=== PATIENT | male | born 1985 | race Two or more races ===

== ENCOUNTER 2016-09-02 11:42 | Emergency (ER) | payer OTHER ==
[~2016-09-02] VITALS: Ht 182.9 cm; Wt 72.4 kg
[~2016-09-02 11:42] MED LIST: AMOXICILLIN500 M1 PO; AUGMENTIN875 MG PO; LEXAPRO5 MG PO; PEN-VEE K,VEET500 MG PO; PERCOCET 5/31 TABLET PO; TORADOL10 MG PO; ULTRAM50 MG PO; no home med
[2016-09-02] MEDS ORDERED: DEPAKOTE500 MG PO (13:05)
[2016-09-02] MEDS ORDERED: LEXAPRO10 MG PO (13:06)
[2016-09-02 13:12] LABS: MCH 32.9 PG (29.0-34.0); MCHC 35.1 G/DL (30.0-36.0); MCV 93.8 FL (86-99); MEAN PLAT.VOLUME 11.2 uM^3 (9.0-12.4); PLATELET COUNT 184 K/uL (156-360); RBC DIS.WIDTH-CV 12.8 % (11.8-14.6); RBC DIS.WIDTH-SD 42.9 % (39-53); WHITE BLOOD COUNT 8.9 K/uL (4.1-10.2)
[2016-09-02 13:25] LABS: CHLORIDE 107 mEq/L (99-109); POTASSIUM 4.1 mEq/L (3.7-5.4); SODIUM 142 mEq/L (136-147)
[2016-09-02 13:26] LABS: GLUCOSE 96 mg/dL (70-99)
[2016-09-02 13:28] LABS: ANION GAP 9 MEQ/L (2-14)
[2016-09-02 13:30] LABS: GFR ESTIMATE (CALCULATED) > 59 mL/min/; SERUM ETHYL ALCOHOL < 10 mg/dL
[2016-09-02 13:31] LABS: UREA NITROGEN (BUN) 15 mg/dL (9-23)
[2016-09-02 14:04] LABS: ADD MEDTOX COMMENT Y; AMPHETAMINE NEGATIVE (500 ng/mL); BARBITURATES NEGATIVE (200 ng/mL); BENZODIAZEPINES NEGATIVE (150 ng/mL); COCAINE NEGATIVE (150 ng/mL); INTERNAL CONTROLS VALID? YES; METHADONE NEGATIVE (200 ng/mL); METHAMPHETAMINE NEGATIVE (500 ng/mL); OPIATES (MORPHINE) NEGATIVE (100 ng/mL); OXYCODONE NEGATIVE (100 ng/mL); PHENCYCLIDINE NEGATIVE (25 ng/mL); PROPOXYPHENE NEGATIVE (300 ng/mL); THC CANNABINOIDS PRESUMPTIVE POSITIVE (50 ng/mL); TRICYCLIC ANTIDEPRESSANTS NEGATIVE (300 ng/mL)
[2016-09-02 15:16] VITALS: BP 140/75
== END 2016-09-02 15:35 | disposition home or self-care (01) ==
LOC: EME 11:42
DX: F41.9 Anxiety disorder, unspecified (principal); F31.32 Bipolar disorder, current episode depressed, moderate; F12.10 Cannabis abuse, uncomplicated
CPT/HCPCS: 80048; 84999; 85027; 90839; 99281; 99284; G0480

== ENCOUNTER 2016-11-09 07:03 | Emergency (ER) | payer OTHER ==
[~2016-11-09] VITALS: Ht 180.3 cm; Wt 73.3 kg
[~2016-11-09 07:03] MED LIST changes: +DEPAKOTE500 MG PO; +LEXAPRO10 MG PO
[2016-11-09 07:54] LABS: EOSINOPHIL (%) 0.3 % (0-5); HEMATOCRIT 42.5 % (38.0-50.0); IMMATURE GRANULOCYTE (%) 0.3 % (0.0-0.7); INSTRUMENT ABS NEUTROPHIL CT 7.2 K/uL; LYMPHOCYTE COUNT 2.5 K/uL (1.0-2.8); MCH 33.2 PG (29.0-34.0); MCHC 33.4 G/DL (30.0-36.0); MCV 99.3 FL (86-99); MONOCYTE (%) 7.8 % (3-12); MONOCYTE COUNT 0.8 K/uL (0-0.8); NEUTROPHIL (%) 67.6 % (45-76); NEUTROPHIL COUNT 7.2 K/uL (1.8-6.4); PLATELET COUNT 186 K/uL (156-360); RBC DIS.WIDTH-CV 14.2 % (11.8-14.6); RBC DIS.WIDTH-SD 52.2 % (39-53); RED BLOOD COUNT 4.28 M/uL (4.00-5.50); WHITE BLOOD COUNT 10.7 K/uL (4.1-10.2)
[2016-11-09 09:25] LABS: ANION GAP 5 MEQ/L (2-14); CHLORIDE 104 MEQ/L (99-109); SAMPLE HEMOLYSIS CHECK 1; SAMPLE ICTERIC CHECK 0; SAMPLE LIPEMIA CHECK 1; SODIUM 136 MEQ/L (136-147)
[2016-11-09 09:26] LABS: TROP-I INTERPRETATION NEGATIVE; TROPONIN-I < 0.01 ng/mL (0.0-0.30)
[2016-11-09 09:29] LABS: POTASSIUM 4.3 MEQ/L (3.7-5.4)
[2016-11-09 09:31] LABS: GFR ESTIMATE (CALCULATED) > 59 mL/min/; GLUCOSE 78 mg/dL (70-99); UREA NITROGEN (BUN) 18 mg/dL (9-23)
[2016-11-09] MEDS ORDERED: TYLENOL WITH C1 EACH PO (09:48)
[2016-11-09] MEDS ORDERED: FLEXERIL10 MG PO (09:48)
[2016-11-09 09:57] VITALS: BP 150/86
== END 2016-11-09 09:58 | disposition home or self-care (01) ==
LOC: EME 07:03
PROVIDERS: Emergency Medicine
DX: R07.89 Other chest pain (principal)
CPT/HCPCS: 71010; 80048; 80048 91; 84484; 85025; 93005; 99281; 99284; J1885; J7030

== ENCOUNTER 2017-02-25 22:48 | Emergency (ER) | payer OTHER ==
[~2017-02-25] VITALS: Ht 180.3 cm; Wt 70.8 kg
[~2017-02-25 22:48] MED LIST changes: +FLEXERIL10 MG PO; +TYLENOL WITH C1 EACH PO
[2017-02-25 23:34] VITALS: BP 146/74
== END 2017-02-25 23:37 | disposition home or self-care (01) ==
LOC: EME 22:48
DX: S09.90XA Unspecified injury of head, initial encounter (principal); V49.40XA Driver injured in collision with unspecified motor vehicles in traffic accident, initial encounter
CPT/HCPCS: 99281; 99284

== ENCOUNTER 2017-07-10 10:08 | Emergency (ER) | payer OTHER ==
[~2017-07-10] VITALS: Ht 185.4 cm; Wt 74.8 kg
[2017-07-10] MEDS ORDERED: TESSALON PERLE100 MG PO (12:31)
[2017-07-10 12:35] VITALS: BP 142/88
== END 2017-07-10 12:36 | disposition home or self-care (01) ==
LOC: EME 10:08
DX: J06.9 Acute upper respiratory infection, unspecified (principal)
CPT/HCPCS: 71020; 87651 90; 99281; 99283

== ENCOUNTER 2018-02-27 14:43 | Emergency (ER) | payer OTHER ==
[~2018-02-27] VITALS: Ht 182.9 cm; Wt 74.3 kg
[~2018-02-27 14:43] MED LIST changes: +TESSALON PERLE100 MG PO
[2018-02-27] MEDS ORDERED: ABILIFY2 MG PO (17:28)
[2018-02-27] MEDS ORDERED: LEXAPRO20 MG PO (17:28)
[2018-02-27 17:42] VITALS: BP 139/80
== END 2018-02-27 17:42 | disposition home or self-care (01) ==
LOC: EME 14:43
DX: F30.9 Manic episode, unspecified (principal)
CPT/HCPCS: 90839; 99281; 99283